=== PATIENT | male | born 2000 | race Caucasian/White ===

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

== ENCOUNTER 2022-08-26 10:31 | Emergency (ER) | payer MEDICAID ==
[~2022-08-26] VITALS: Ht 170.2 cm; Wt 93.0 kg
[2022-08-26 10:35] VITALS: BP 132/74
[2022-08-26] MEDS ORDERED: IBUP-2213 PO (12:40)
[2022-08-26] MEDS ORDERED: FLONAS NS (12:40)
--- NOTE | 2022-08-26 12:53 | NUR ---
PT DISCHARGED BY [employer] RX OF FLONASE NASAL AND IBUPROFEN SENT TO PTS PHARMACY.
== END 2022-08-26 12:53 | disposition home or self-care (01) ==
LOC: MED 10:31
DX: S93.402A Sprain of unspecified ligament of left ankle, initial encounter (principal); J30.9 Allergic rhinitis, unspecified; Z79.899 Other long term (current) drug therapy; Z79.1 Long term (current) use of non-steroidal anti-inflammatories (NSAID); X58.XXXA Exposure to other specified factors, initial encounter; Y93.67 Activity, basketball; Y92.310 Basketball court as the place of occurrence of the external cause; Y99.8 Other external cause status
CPT/HCPCS: 73610; 99283